=== PATIENT | male | born 1980 | race Caucasian/White ===

== ENCOUNTER 2016-11-05 13:04 | Outpatient (CLI) | payer OTHER ==
[~2016-11-05] VITALS: Ht 174 cm; Wt 80.5 kg
[2016-11-05 13:06] VITALS: BP 114/56; PULSE 58; RESP 16; Ht 174 cm; Wt 80.5 kg
--- NOTE | 2016-11-05 13:42 | CONS ---
Date/Time of Note Date/Time of Note DATE: 11/05/16 TIME: 13:42 Assessment/Plan Assessment/Plan Additional Assessment/Plan [facility] INITIAL OUTPATIENT CONSULTATION NOTE DATE OF CONSULTATION: 11/05/2016 PLACE OF SERVICE: [facility] ([facility]) at [facility] ASSESSMENT AND PLAN: A very-pleasant otherwise healthy 36-year-old gentleman with right inguinal hernia that appears to be symptomatic. I recommended surgical repair with laparoscopic, possible open right inguinal hernia repair, possibly with mesh. Reviewed the reasoning behind my recommendation as well as the risks, benefits and alternatives and obtain the patient's consent for the operation. Note that there was no family present during my discussions with the patient. Answered all questions and he appeared to understand and agreed with the plans. With above assessment, I've recommended the followin. Preoperative history and physical 2. Schedule for outpatient laparoscopic, possible open right inguinal hernia repair, possibly with mesh Thank you very much for having me involved in the care of this very pleasant patient and wonderful family. If you have any questions, please feel free to contact me at [phone]. Nature of presenting problem: Low to moderate severity Please note that, given the limited number of diagnoses or management options, the limited amount and/or complexity of data needed to be reviewed, and low to moderate risk of complications and/or morbidity or mortality, this qualifies as low complexity type of decision-making. Disclaimer: Inadvertent spelling and grammatical errors are likely due to EHR/ dictation software use and do not reflect on the quality of delivered patient care. Also, please note that the electronic time recorded on this node does not necessarily reflect the actual time of the visit. Updated clinical summary: Very pleasant otherwise healthy 36-year-old gentleman with only comorbidity of BMI 26.6, suffering from right inguinal hernia for the last 2 months. Comorbidities: 1. BMI 26.6 2. Orthoscopic left ankle surgery 2002 3. Tonsillectomy 2011 CONSULTATION REQUESTED BY: Keiry Levin MD (much appreciate the referral) HISTORY OF PRESENT ILLNESS: The patient is a very pleasant otherwise healthy 36 -year-old gentleman with only comorbidity of BMI 26.6, suffering from right inguinal hernia for the last 2 months. He noted hernia with pain during exercise. No prior experience with similar symptoms. No prior bowel obstruction symptoms. No change in bowel or bladder habits or weight. No decrease or increase in appetite. No other major abdominal surgeries in the past. Pain is localized to the right inguinal region without radiation to scrotum. Testicles are nontender. Moderate to severe pain at times. Not needing pain medications for it. No prior surgeries in this region. No other major complaints. ALLERGIES: NO KNOWN DRUG ALLERGIES MEDICATIONS Documented in the electronic records and reviewed by me. Please see the electronic records for details. SOCIAL HISTORY: The patient is single and has no children. 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 There are no other significant medical, surgical or oncologic issues in the family as reported by the patient or reflected in the chart. REVIEW OF SYSTEMS: Other than mentioned above, there were no other pertinent positives or pertinent negatives in an otherwise complete 14 point review of systems. PHYSICAL EXAMINATION GENERAL: The patient appears to be a very pleasant gentleman of descent lying in bed, appearing stated age,] and otherwise in no acute distress. BMI: 26.6 VITAL SIGNS: AVSS (please also see auto important data if available as well as the electronic records) HEENT: Normocephalic and atraumatic. Extraocular muscles and hearing are grossly intact bilaterally and symmetrically. Sclerae are nonicteric. Oral cavity is clear; oral mucosa appear to be pink and moist. Dentition: fair. NECK: Supple. There is no lymphadenopathy or JVD. There is no submental, submandibular or supraclavicular lymphadenopathy. CHEST: Rises symmetrically with each breath; patient is breathing comfortably. There are no audible wheezes, rales or rhonchi on the gross exam. HEART: Pulse is regular and palpable on the right wrist. Capillary refill is normal. Carotid pulses are palpable bilaterally and symmetrically in the neck. EXTREMITIES: Lower extremities contain no pitting edema around the ankles bilaterally and symmetrically. ABDOMEN: Abdomen is soft, nontender and nondistended. No evidence of ascites, organomegaly, caput medusae, engorged subcutaneous veins, or other abnormalities. There are no peritoneal signs or guarding. Left groin area normal. Right groin area shows a small indirect hernia which is apparent on Valsalva maneuver. Genitalia appear to be grossly normal. Discomfort to palpation in the region. SKIN: Appears to be pink and feels warm to touch. NEUROLOGIC: Awake, alert, and follows commands appropriately. LABORATORY DATA: August 2016: Triglycerides 186. Creatinine 0.92. CO2 22. Albumin 4.7. Liver function and injury parameters normal. White blood cell count 4.8. Platelets 228. PSA 2.1. IMAGING: See electronic chart. Please note that I've personally reviewed all pertinent available images and I agree in general with their overall reported findings. Outside ultrasound soft tissue, right groin 09/26/2016: No sonographic evidence of right inguinal hernia. Small lipomatous tissue identified in the inguinal region. No fluid collections are identified. Consultation Date/Type/Reason Admit Date/Time Exam/Review of Systems Vital Signs Vitals Vital Signs Date Time Temp Pulse Resp B/P Pulse Ox O2 Delivery O2 Flow Rate FiO2 11/05/16 13:06 98.0 58 16 114/56 95 Room Air ELDA GUTIÉRREZ M.D. Nov 05, 2016 13:42
== END 2016-11-05 16:45 | disposition home or self-care (01) ==
LOC: HPC 13:04
PROVIDERS: ATTEND Transplant Surgery
DX: K40.90 Unilateral inguinal hernia, without obstruction or gangrene, not specified as recurrent (principal)
CPT/HCPCS: G0463

== ENCOUNTER 2016-11-25 05:37 | Day surgery (SDC) | payer OTHER ==
[2016-11-24 09:12] VITALS: BMI 26.8
[~2016-11-25] VITALS: Ht 175.3 cm; Wt 78.6 kg
[2016-11-25] VITALS (11 sets, daily range): BP systolic 95–121; BP diastolic 51–67; PULSE 56–88; RESP 12–18; Ht 175.3 cm; Wt 78.6 kg
[2016-11-25] MEDS ORDERED: D5W-0.45 NACL + KCL 20 MEQ 1,000 ML IV SCH (06:00)
[2016-11-25] MEDS ORDERED: CEFAZOLIN 2 GM/50 ML (PMX) 50 ML IVPB ONE (06:00)
--- NOTE | 2016-11-25 06:52 | RADRPT ---
PROCEDURE: XR Chest. CLINICAL INDICATION: pre op TECHNIQUE: A single AP view of the chest was obtained. COMPARISON: None. FINDINGS: No focal airspace opacification, pleural effusion or pneumothorax is seen. The cardiomediastinal si lhouette is within normal limits for size. The osseous structures are unremarkable. IMPRESSION: No radiographic evidence of acute cardiopulmonary disease. RPTAT: HH .Heather Knowles MD, MD Date Time Electronically viewed and signed by .Heather Knowles MD, on 11/25/2016 06:51 .G/
[2016-11-25] MEDS ORDERED: BUPIVACAINE 0.5%/EPI (SDV) 10 ML INJ ONE ×2 (06:57)
[2016-11-25] MEDS ORDERED: PROPOFOL 20 ML ONE (07:33)
[2016-11-25] MEDS ORDERED: GLYCOPYRROLATE 0.4 MG INJ ONE ×2 (07:33→07:54)
[2016-11-25] MEDS ORDERED: LIDOCAINE 2% (SDV) 5 ML INJ ONE (07:33)
[2016-11-25] MEDS ORDERED: NEOSTIGMINE 3 MG/3 ML SYRINGE ONE ×2 (07:33→07:54)
[2016-11-25] MEDS ORDERED: ROCURONIUM 50 MG INJ ONE (07:33)
[2016-11-25] MEDS ORDERED: SUCCINYLCHOLINE CHLORIDE 100 MG/5 ML SYG IV ONE (07:33)
[2016-11-25] MEDS ORDERED: MEPERIDINE 100 MG INJ ONE (07:33)
--- NOTE | 2016-11-25 07:35 | HPN ---
Date/Time of Note Date/Time of Note DATE: 11/25/16 TIME: 07:34 Interval H&P Admission Note Pt. seen H&P reviewed: No system changes Pt. seen H&P reviewed. No system changes (I attest that I have seen and examined the patient and reviewed the operation in detail, as well as its risks , benefits and alternatives of the operation). I attest that I have seen and examined the patient and reviewed in detail the operation, and its associated risks, benefits and alternative. I have answered all the patient's questions to the best of my ability and the patient wishes to proceed. Please refer to rest of electronic medical record for additional updates. ELDA GUTIÉRREZ M.D. Nov 25, 2016 07:35
[2016-11-25] MEDS ORDERED: CEFAZOLIN 1 GM INJ ONE (07:36)
[2016-11-25] MEDS ORDERED: ONDANSETRON 4 MG INJ ONE (07:36)
[2016-11-25] MEDS ORDERED: MIDAZOLAM 1 MG/ML 2 ML INJ IV PRN (10:30)
[2016-11-25] MEDS ORDERED: METOCLOPRAMIDE 10 MG INJ IV PRN (10:30)
[2016-11-25] MEDS ORDERED: BISACODYL 10 MG SUPP PR PRN (10:30)
[2016-11-25] MEDS ORDERED: hydrALAzine 20 MG INJ IV PRN (10:30)
[2016-11-25] MEDS ORDERED: DIPHENHYDRAMINE 50 MG INJ IV PRN (10:30)
[2016-11-25] MEDS ORDERED: HYDROmorphONE (0.2 MG/ML) 10ML SYG IV PRN ×3 (10:30)
[2016-11-25] MEDS ORDERED: FENTAnyl 50 MCG/ML VIAL IV PRN ×3 (10:30)
[2016-11-25] MEDS ORDERED: LABETALOL HCL 20MG INJ IV PRN (10:30)
[2016-11-25] MEDS ORDERED: EPHEDrine SULFATE 50 MG/5 ML SYG IV PRN (10:30)
[2016-11-25] MEDS ORDERED: OXYCODONE/ACETAMINOPHEN (5/325) TAB PO PRN ×2 (10:30)
[2016-11-25] MEDS ORDERED: MEPERIDINE 25 MG INJ IV PRN (10:30)
[2016-11-25] MEDS ORDERED: DOCUSATE SODIUM 100 MG CAP PO PRN (10:30)
[2016-11-25] MEDS ORDERED: ONDANSETRON 4 MG INJ IV PRN (10:30)
[2016-11-25] MEDS ORDERED: HYDROCODONE/APAP (5/325) TAB PO PRN ×2 (10:30)
--- NOTE | 2016-11-25 10:31 | OPR ---
Date/Time of Note Date/Time of Note DATE: 11/25/16 TIME: 10:31 Operative Report Procedure Description [facility] INPATIENT OPERATIVE NOTE PLACE OF SERVICE: [facility] DATE OF SURGERY: 11/25/2016 PREOPERATIVE DIAGNOSIS: 1. Right inguinal hernia 2. BMI 26.6 3. Orthoscopic left ankle surgery 2002 4. Tonsillectomy 2011 POSTOPERATIVE DIAGNOSIS: 1. Right inguinal hernia with cord lipoma 2. BMI 26.6 3. Orthoscopic left ankle surgery 2002 4. Tonsillectomy 2011 OPERATION: 1. Laparoscopic right inguinal hernia repair with mesh (Symbotex 10 cm x 15 cm) SURGEON: Elda Gutiérrez M.D. TEACHER ADULT EDUCATION: None ANESTHESIA: General endotracheal tube anesthesia ANESTHESIOLOGIST: Tomy Puri M.D. BRIEF SUMMARY: An otherwise uncomplicated but somewhat challenging from a decision-making standpoint right inguinal hernia repair with mesh was performed with findings of cord lipoma within the inguinal canal with retroperitoneal herniation of the lipoma in and out of a 1.5 cm internal ring that was not otherwise associated with an intra-abdominal portion of hernia. Updated clinical summary: Very pleasant otherwise healthy 36-year-old gentleman with only comorbidity of BMI 26.6, suffering from right inguinal hernia for the last 2 months. Comorbidities: 1. BMI 26.6 2. Orthoscopic left ankle surgery 2002 3. Tonsillectomy 2011 BRIEF HISTORY: The patient is a very-pleasant otherwise healthy 36-year-old gentleman with right inguinal hernia that appears to be symptomatic. I met with the patient (no family present during any of my discussions with the patient) and counseled him regarding the possible options of treatment, and I strongly suggested a laparoscopic, possible open, right groin hernia repair, possible mesh, possible bilateral. We reviewed the operation in detail as well as the risks, benefits, alternatives, and expected outcomes of this operation. After careful consideration of all the risks, benefits, and alternatives, the patient appeared to understand those risks and wished to proceed with surgery. For a detailed report of my consultation with patient, please refer to my separate consultation note. STATEMENT OF THE INFORMED CONSENT: The patient appeared to understand the risks of the operation to include, but not be limited to risk of postoperative pain and scar tissue, possible infection or bleeding requiring other interventions such as opening the wound, placement of drainage catheters, or other operative interventions; possible injury to surrounding to structures including bowel, bladder, bile duct, or blood vessels, or solid organs such as liver, kidney, or pancreas requiring other interventions or procedures; possible infection of the mesh causing significant increase in morbidity and mortality and requiring multiple interventions including but not limited to, placement of drainage catheters, imaging studies, as well as operative interventions with possible removal of the mesh and recurrence of hernia requiring future repair; possible other source of sepsis such as urinary tract infections or pneumonias, or other sources of potentially life threatening problems such as deep venous thrombus formation causing pulmonary embolism, myocardial arrhythmias and infarctions, and even . After careful consideration of all their options, the patient appeared to understand and wished to proceed with surgery. DESCRIPTION OF PROCEDURE: After obtaining informed consent, the patient was brought into the operating room and was placed in a normal supine position, where successful general endotracheal tube anesthesia was performed. Intravenous access was already in place and intravenous antimicrobials had been appropriately chosen and dosed prior to the operation. The patient's abdominal skin was prepped and draped from the nipple line down to the level of the upper thighs including the groin and in the usual sterile fashion. We then called a surgical time-out where the patient's identification, date of , nature of the operation, allergies, presence of intravenous antimicrobials, presence of needed equipment, and any other concerns were reviewed and agreed upon by all members of the operating room team. We then started the operation by placing a 5 mm [employer] trocar into the peritoneal space through a left lower quadrant 5 mm skin incision and using direct entry technique visualizing all the layers of the abdominal wall as we entered. Upon entry to the peritoneal space, we did not notice any obvious evidence of injury to underlying structures. We insufflated the abdominal cavity to a maximum pressure of 15 mmHg and again noted no significant adhesions in the region and found no obvious left or right inguinal hernia defect under insufflation. I very carefully inspected both areas and could not demonstrate any defect of the peritoneum going into the inguinal canal. There was also no evidence of a bulge with 15 mmHg pressure intra-abdominally within the right or left inguinal regions or the scrotum when inspecting the areas from the outside. At this time, I scrubbed out of the case and consulted with 1 of my colleagues (Dr. Lorin Astudillo) who agreed that if there was no obvious hernia from the inside or obvious hernia otherwise, to go ahead and abort the operation. He and I both agreed that it would be important to investigate the retroperitoneal area since sometimes, hernia such as this appear to be symptomatic due to retroperitoneal type of herniation of tissue and not so much from intra-abdominal sources. I scrubbed back in and with visualization from the inside manipulated outside tissue some more and realizes that there is indeed what appeared to be a cord lipoma that was easily herniating out through the head and internal ring when I pushed on the tissue from the outside and let go of it. This was enough for me to go ahead and proceed with the rest of the operation as follows. We therefore placed a 12 mm trocar in the umbilical space as well as another 5 mm trocar in the right lower quadrant all under direct visualization and after injecting the sites with quarter percent Marcaine with epinephrine. With our instruments in place, we had excellent visualization and access to the pelvis. We then placed a transverse cut above the area of the hernia in the standard fashion on the peritoneum and took down the peritoneal covering from the right groin region until we were able to dissect the sac completely from the cord structures. After careful development of the pocket, I was able to gently tease out what indeed proved to be a rather long segment of cord lipoma, approximately 10 cm in length and 1-1 and half centimeters in diameter out of the inguinal ring region. We ensured hemostasis. Inspection of the space within the internal ring from within the abdomen confirmed presence of a defect in that region. We then placed a 10 cm x 15 cm mesh (I had to cut this to size from a larger mesh since a precut mesh was not available in the size) into the abdominal cavity and widely covered the area of the right hernia with mesh within the pocket. The mesh laid in the pocket nicely. We then secured the mesh onto the pubic tubercle and on the superior aspect and the most lateral aspect of the mesh using absorbable tacks. This was done under low insufflation. We again ensured adequate hemostasis and then covered the mesh with peritoneum using the peritoneal layer that we had taken down previously. After insuring adequate hemostasis, we removed all our equipment from the abdominal cavity including the pneumoperitoneum, closed the umbilical fascial defect using one [id number] 0 Vicryl suture on a UR 6 needle, washed the wounds with copious amounts normal saline, injected the initial entry site with quarter percent Marcaine with epinephrine, and then closed the skin using interrupted 4 Monocryl suture. Light dressing was then applied. At the end of the operation, both the sponge count and needle count were reportedly correct x2. The patient tolerated the procedure without any reported complications. ESTIMATED BLOOD LOSS: 10 mL BLOOD OR BLOOD PRODUCT TRANSFUSIONS: None to my knowledge. SPECIMENS: Cord lipoma COMPLICATIONS: None. DISPOSITION: Recovery area. Disclaimer: Inadvertent spelling and grammatical errors are likely due to EHR/ dictation software use and do not reflect on the quality of delivered patient care. Also, please note that the electronic time recorded on this node does not necessarily reflect the actual time of the visit. ELDA GUTIÉRREZ M.D. Nov 25, 2016 10:31
== END 2016-11-25 12:35 | disposition home or self-care (01) ==
LOC: SDS 05:37
PROVIDERS: ATTEND Transplant Surgery
DX: K40.90 Unilateral inguinal hernia, without obstruction or gangrene, not specified as recurrent (principal); D17.79 Benign lipomatous neoplasm of other sites
CPT/HCPCS: 49650; 71010; J0690; J2175; J2405; J2710; J7999; J1200

== ENCOUNTER 2016-12-10 14:45 | Outpatient (CLI) | payer OTHER ==
[~2016-12-10] VITALS: Ht 174 cm; Wt 78.6 kg
[2016-12-10 13:40] VITALS: BP 109/61; PULSE 68; RESP 18; Ht 174 cm; Wt 78.6 kg
--- NOTE | 2016-12-10 18:32 | PN ---
Date/Time of Note Date/Time of Note DATE: 12/10/16 TIME: 18:29 Assessment/Plan Assessment/Plan Assessment/Plan [facility] Progress Note Date of Service: 12/10/16 Today's Impression & Plan: Overall doing well post op without major issues. No major wound problems. With above assessment, I've recommended the following for today: 1. F/u with PCP 2. F/u with us prn Nature of presenting problem: moderate risk Thank you again for your great care of this very pleasant patient and wonderful family. If there are any questions, please feel free to call me at [phone]. Disclaimer: Inadvertent spelling or grammatical errors are likely due to EHR/ dictation software use and do not reflect on the overall quality of patient care. Updated clinical summary: Very pleasant otherwise healthy 36-year-old gentleman with only comorbidity of BMI 26.6, suffering from right inguinal hernia for the last 2 months. Comorbidities: 1. Right inguinal hernia with cord lipoma. S/p an otherwise uncomplicated but somewhat challenging from a decision-making standpoint right inguinal hernia repair with mesh (Symbotex 15 cm x 10 cm) at [facility] on 11/25/16 with findings of cord lipoma within the inguinal canal with retroperitoneal herniation of the lipoma in and out of a 1.5 cm internal ring that was not otherwise associated with an intra-abdominal portion of hernia. 2. BMI 26.6 3. Orthoscopic left ankle surgery 2002 4. Tonsillectomy 2011 Subjective: No major events or complaints; no abd pain and under control with medications; no n/v/d; no sob or cp; + flatus; + BM and normal; + activity Objective: Vitals: See below Exam: GENERAL: On exam, the patient was sitting in a chair and appeared to be comfortable and in no acute distress. ABDOMEN: Soft, nontender and nondistended. Incisions are clean, dry and intact without any evidence of erythema, edema, discharge, or hernia. There are no peritoneal signs or guarding. SKIN: Skin appears to be pink and feels warm to touch. NEUROLOGIC: Patient is awake, alert, and follows commands appropriately. Exam/Review of Systems Vital Signs Vitals Vital Signs Date Time Temp Pulse Resp B/P Pulse Ox O2 Delivery O2 Flow Rate FiO2 12/10/16 13:40 98.1 68 18 109/61 98 Room Air ELDA GUTIÉRREZ M.D. Dec 10, 2016 18:32
== END 2016-12-10 16:47 | disposition home or self-care (01) ==
LOC: HPC 14:45
PROVIDERS: ATTEND Transplant Surgery
DX: K40.90 Unilateral inguinal hernia, without obstruction or gangrene, not specified as recurrent (principal)
CPT/HCPCS: G0463